=== PATIENT | male | born 1990 | race Caucasian/White ===

== ENCOUNTER 2018-05-18 08:37 | Emergency (ER) | payer OTHER ==
[2018-05-18] MEDS ORDERED: HYDROMORPHONE HCL INJ/PF 2 MG/ML AMPULE IV ONE ×3 (09:36→12:21)
[2018-05-18] MEDS ORDERED: ONDANSETRON HCL INJ/PF 4 MG/2 ML SDV IV ONE (09:36)
[2018-05-18 10:13] LABS: ABSOLUTE EOSINOPHILS # (AUTO) 0.4 10^3/uL (0.0-0.6); ABSOLUTE LYMPHOCYTES (AUTO) 0.9 10^3/uL (0.5-4.7); ABSOLUTE MONOCYTES (AUTO) 0.6 10^3/uL (0.1-1.4); ABSOLUTE NEUT (AUTO) 3.2 10^3/uL (1.7-8.2); BASOPHILS % (AUTO) 0.6 % (0-2); EOSINOPHILS % (AUTO) 8.5 % (0-6); HEMATOCRIT 31.3 % (37.9-51.0); LYMPHOCYTES % (AUTO) 17.5 % (13-45); MEAN CORPUSCULAR HEMOGLOBIN 30.7 pg (27.0-33.4); MEAN CORPUSCULAR HGB CONC 35.1 g/dL (32.0-36.0); MEAN CORPUSCULAR VOLUME 87 fl (80-97); MONOCYTES % (AUTO) 11.3 % (3-13); PLATELET COUNT 239 10^3/uL (150-450); RED BLOOD COUNT 3.58 10^6/uL (4.35-5.55); RED CELL DISTRIBUTION WIDTH 12.2 % (11.5-14.0); SEGMENTED NEUTROPHILS % (AUTO) 62.1 % (42-78); TOTAL CELLS COUNTED % (AUTO) 100 %; WHITE BLOOD COUNT 5.1 10^3/uL (4.0-10.5)
[2018-05-18 10:16] LABS: INTERNATIONAL RATION (INR) 0.97; PROTHROMBIN TIME 13.4 SEC (11.4-15.4)
[2018-05-18 10:29] LABS: ALANINE AMINOTRANSFERASE 27 U/L (21-72); ALKALINE PHOSPHATASE 52 U/L (38-126); ANION GAP 10 (5-19); ASPARTATE AMINO TRANSFERASE 38 U/L (17-59); BILIRUBIN,DIRECT 0.2 mg/dL (0.0-0.4); BILIRUBIN,TOTAL 0.5 mg/dL (0.2-1.3); BLOOD UREA NITROGEN 8 mg/dL (7-20); CALCIUM 9.4 mg/dL (8.4-10.2); CARBON DIOXIDE 28 mmol/L (22-30); CHLORIDE 100 mmol/L (98-107); GLUCOSE 99 mg/dL (75-110); POTASSIUM 4.6 mmol/L (3.6-5.0); TOTAL PROTEIN 6.5 g/dL (6.3-8.2)
[2018-05-18] MEDS ORDERED: DEXAMETHASONE SOD PHOS INJ 10 MG/1 ML VIAL IV ONE (10:39)
--- NOTE | 2018-05-18 10:44 | ER Document Report ---
ED General - General Chief Complaint: Leg Pain Stated Complaint: LEFT LEG PAIN Time Seen by Provider: 05/18/18 09:35 Mode of Arrival: Ambulatory Information source: Patient Notes: This is a 27-year-old man status post lumbar fusion 4 days ago at [facility] (Dr. Navarro) who presents to the emergency room with back pain and burning sensation down his his left thigh. There is no swelling to the lower extremity. He denies any chest pain or shortness of breath. He says most of the discomfort is in the lower lumbar area. TRAVEL OUTSIDE OF THE [place] IN LAST 30 DAYS: No - HPI Onset: This morning Onset/Duration: Gradual Quality of pain: Dull Severity: Severe Pain Level: 5 Associated symptoms: denies: Chest pain, Fever, Shortness of breath Exacerbated by: Movement Relieved by: Remaining still Similar symptoms previously: Yes Recently seen / treated by doctor: Yes - Related Data Allergies/Adverse Reactions: No Known Allergies Allergy (Verified 05/18/18 08:38) Past Medical History - General Information source: Patient - Social History Smoking Status: Former Smoker Cigarette use (# per day): No Chew tobacco use (# tins/day): No Frequency of alcohol use: None Drug Abuse: None Lives with: Family Family History: None Patient has suicidal ideation: No Patient has homicidal ideation: No - Past Medical History Cardiac Medical History: Reports: None Pulmonary Medical History: Reports: None Renal/ Medical History: Denies: Hx Peritoneal Dialysis Musculoskeletal Medical History: Reports Other - Back pain Skin Medical History: Reports None Past Surgical History: Reports: Hx Neurologic Surgery - spinal fusion 05/13/18 Review of Systems - Review of Systems Constitutional: denies: Chills, Fever EENT: No symptoms reported Cardiovascular: No symptoms reported Respiratory: No symptoms reported Gastrointestinal: No symptoms reported Genitourinary: No symptoms reported Male Genitourinary: No symptoms reported Musculoskeletal: See HPI Skin: No symptoms reported Hematologic/Lymphatic: No symptoms reported Neurological/Psychological: Other - There is no incontinence. No numbness. No weakness to the lower extremities. He is limited by how much pain he is having. Physical Exam - Vital signs Vitals: Temp Pulse Resp BP Pulse Ox 97.5 F 101 H 22 H 165/63 H 100 05/18/18 08:43 05/18/18 08:43 05/18/18 08:43 05/18/18 08:43 05/18/18 08:43 Notes: Physical exam: GENERAL: Patient is alert and oriented x3, complaining of back pain. He does appear in distress. HEAD: Atraumatic, normocephalic. EYES: Pupils equal round and reactive to light, extraocular movements intact, sclera anicteric, conjunctiva are normal. ENT: TMs normal, nares patent, oropharynx clear without exudates. Moist mucous membranes. NECK: Normal range of motion, supple without obvious mass or JVD. LUNGS: Breath sounds clear to auscultation bilaterally and equal. No wheezes rales or rhonchi. HEART: Regular rate and rhythm without murmurs, rubs or gallops. ABDOMEN: Soft, normoactive bowel sounds. No tenderness to palpation. No guarding, no rebound. No masses appreciated. Back: Midline incision site is dry and intact, there is no erythema, fluctuance or discharge. He does have a small incision site over the right sacrum with bone graft was done: This site is dry and intact and there is no erythema or evidence of infection. Off of midline on the left side in the sacral area: This is where the drainage tube was, there is no erythema fluctuance or evidence of infection. The wound site looks very good at this point. EXTREMITIES: Patient does complain of left thigh burning and pain. There is no pain to palpitation. There is no erythema. There is no warmth. There is no swelling. He has no popliteal tenderness. There is no calf tenderness. There is no swelling of the extremity: Its symmetric to the other side. There is good distal pulse. He has good strength with plantar flexion and dorsiflexion. NEUROLOGICAL: Cranial nerves II through XII grossly intact. Normal speech, moving all extremities. PSYCH: Normal mood, normal affect. SKIN: Warm, Dry, normal turgor, no rashes or lesions noted. Course - Re-evaluation Re-evalutation: 05/18/18 10:[address] Shelby who is covering for [facility]. Initially, when he spoke to the patient he referred the patient to the emergency room for lower extremity Doppler. Clinically, patient does not have any hard s igns for a DVT. We will get the venous Doppler. I discussed the patient's symptoms and hospital course when he was over at [facility]. He did recommend giving the patient some IV Decadron and pain control. 05/18/18 18:56 I have had a long conversation with the patient and his about the medicines that he is prescribed and how to take them. Patient is up and ambulating with his brace. He does state he feels better. - Vital Signs Vital signs: Temp Pulse Resp BP Pulse Ox 97.5 F 101 H 11 L 108/63 97 05/18/18 08:43 05/18/18 08:43 05/18/18 15:01 05/18/18 15:00 05/18/18 15:01 - Laboratory Result Diagrams: 05/18/18 09:55 05/18/18 09:55 Laboratory results interpreted by me: 05/18/18 09:55 RBC 3.58 L Hgb 11.0 L Hct 31.3 L Eosinophils % 8.5 H - Diagnostic Test Radiology reviewed: Image reviewed, Reports reviewed - Ultrasound shows no evidence of DVT Discharge - Discharge Clinical Impression: Back pain status post surgery Condition: Stable Disposition: HOME, SELF-CARE Additional Instructions: As we discussed, the wound site looks good at this time. Your blood counts were good. Your electrolytes and kidney function was normal. The ultrasound of the lower leg showed no evidence of blood clot. I had spoken to Dr Shelby who is covering for Dr. Navarro and had recommended steroids to reduce the inflammation. Take the Medrol Dosepak as prescribed. You can start in the morning, you were given a dose of steroids while in the emergency room. Celebrex: While taking the steroids (Solu-Medrol or Medrol Dosepak): Do not take the Celebrex. The diazepam (Valium): Take 1 tablet every 12 hours for severe spasms. This medicine will make you more sleepy, so you could take it closer to the evening when going to bed. It can make you excessively sleepy if you take it with the pain medicine, So stagger that with the pain medicine. Pantoprazole: This medicine is for the reflux. You can take 1 tablet daily. This can be taken at any time during the day. Gabapentin: 1 tablet 3 times a day (every 8 hours): This is a pain medicine that is less sedating. This is not a narcotic. Oxycodone: Take 1-2 tablets every 4 hours as needed. This is a narcotic and will make you sleepy. In general, I would not take the oxycodone and Valium at the same time. Senna: This is the stool softener: 2 tablets twice daily. This will not interact with any medicines. Methocarbamol: 750 mg every 6 hours as needed for spasms. This is the muscle relaxer and it tends to be less sedating. They will advise you not to take it with the pain medicines, but again, it is less sedating. You can try and stagger it with pain medicines. Acetaminophen: This is Tylenol. Just make sure you not taking excessive amounts of Tylenol because it can be harmful to the liver. You could take 500 mg every 6 hours. You to follow-up with your neurosurgeon. Return to the emergency room for any concerns for postop infection, worsening pain or any concerns or getting worse. Prescriptions: Methylprednisolone [Medrol 4 mg Dosepack 21 Tab/Pack] 4 mg PO ASDIR PRN #21 tab.ds.pk PRN Reason:
--- NOTE | 2018-05-18 12:36 | XCELERA REPORT ---
[address] [facility] [address] Lower Extremity Venous Evaluation Procedure: Color flow and duplex imaging of the veins of the left lower extremity as well as the right Common Femoral vein. Right Sided Venous Evaluation The right common femoral vein is fully compressible. Spontaneous and phasic flow is present in the right common femoral vein. Left Sided Venous Evaluation Normal vessel filling wall to wall, compression and augmentation as well as Colour flow down to the infrageniculate veins. Interpretation Summary No duplex evidence of DVT or obstruction in the left lower extremity nor in the right Common Femoral vein. Name: STACY ALVAREZ Age: 27 yrs Gender: Male : 1990 Patient Status: Emergency Patient Location: ER Study Date: 05/18/2018 10:51 AM Reason For Study: rle swelling Ordering Physician: YANDEL MANCERA Performed By: Derek Croft : YANDEL MANCERA > Benny Chou
[2018-05-18 15:24] VITALS: BP 108/63
== END 2018-05-18 15:46 | disposition home or self-care (01) ==
LOC: ER 08:37
DX: M54.9 Dorsalgia, unspecified (principal); G89.18 Other acute postprocedural pain; Z98.890 Other specified postprocedural states; M79.605 Pain in left leg; M79.652 Pain in left thigh; Z87.891 Personal history of nicotine dependence
CPT/HCPCS: 96376; 99284; 96374; 96375; 36415; 85025; 85610; 80053; 93971 ×2; J1170; J2405; J1100